=== PATIENT | female | born 1990 | race Caucasian/White ===

== ENCOUNTER 2016-12-11 09:47 | Inpatient (IN) | payer BC, OTHER ==
[2016-12-11] MEDS ORDERED: Ondansetron 4 MG/2 ML SDV IVPUSH PRN ×2 (10:11→10:54)
[2016-12-11] MEDS ORDERED: Nalbuphine 20 MG/1 ML Amp IVPUSH PRN (10:11)
[2016-12-11] MEDS ORDERED: Sodium Chloride 0.9% 10 ML Syringe FLUSH PRN (10:11)
[2016-12-11] MEDS ORDERED: Oxytocin/Lactated Ringers 10 UNIT/1,000 ML BAG IV SCH (10:15)
--- NOTE | 2016-12-11 10:41 | PCM.LDHP ---
L&D History of Present Illness - General Date of Service: 12/11/16 Admit Problem/Dx: Patient Status Order with Admit Dx/Problem Admission Diagnosis: Intrauterine at 39 and 1/7th weeks gestation. 12/11/16 10:43 12/11/16 11:22 - History of Present Illness Introduction:: The patient is a 26-year-old, 2, para 1-0-0-1 white female with an ERIC Of 12/17/2016, who was admitted for elective induction of labor. She is presently 2 cm dilated, 50% effaced, soft, mid position, and -3 station. Course: The patient's last menstrual period was on 03/12/2016, was definite, and using no control at the time of conception. Her LMP was supported by ultrasounds done on 06/04/2016 and 08/11/2016. Her course has been relatively unremarkable. She is open to an epidural for pain control. She had an [place] Depression Screen score of 8 on 08/10/2016. She does have a history of anxiety and depression which has been stable throughout without medication. She received her tdap vaccine on 10/12/2016. Group B strep screen was positive. Genetic testing was declined. She plans on . Her course was unremarkable in that she had a weight gain of approximately 210 to 243 pounds. Her vital signs have been stable throughout , and her fundal height growth was appropriate. Laboratory Testing: Showed blood to be A positive with negative antibody screening. Her hemoglobin was 12.8 at first visit. Platelets were 308,000. She is rubella immune. RPR is nonreactive. Her urine culture had mixed jean carlos suggestive on contamination. Hepatitis B and HIV assays were negative. Chlamydia and gonorrhea were negative. Her second trimester testing showed a hemoglobin of 11.6 and platelets were 308, 000. her 1-hour glucose was 117 - normal. Group B strep screen was positive. Allergies: Sulfa drugs; hives Sun Medications: 1. vitamin 1 tablet daily 2. Tylenol PM extra strength tabs PRN. Past Medical History: Recurrent UTIs Anxiety and depression Chronic bronchitis Left nipple discharge Chronic back pain Past Surgical History: Tonsillectomy 2007 Oral surgery 2006 - Related Data Allergies/Adverse Reactions: Allergies Allergy/AdvReac Type Severity Reaction Status Date / Time Sulfa (Sulfonamide Allergy Hives Verified 12/11/16 10:47 Antibiotics) Social & Family History - Family History Other Family History: Mother: alive; healthy Father: alive; adult onset diabetes mellitus and hypertension 2 Sisters: alive; healthy Maternal Grandmother: alive; hypertension, hypercholesterolemia Maternal Grandfather: alive; prostate cancer Maternal Aunt: ; cancer Paternal Grandmother: ; unknown cause Paternal Grandfather: ; unknown cause. No family history of bleeding or clotting disorders. No anesthesia problems in family. - Living Situation & Occupation Social History Comment: The patient is , is Tylor Navas. They live in [place], [place]. The patient works at [employer]. Denies alcohol, tobacco, and drug use during . She is a former smoker and quit prior to . H&P Review of Systems - Review of Systems: Review Of Systems: See Below Free Text/Narrative: Respiratory: Orthopnea secondary to . Denies shortness of breath and recent upper respiratory infections. Cardiovascular: Denies chest pain, palpitations and history of murmur. Breasts: Changes associated with GI: Constipation throughout . Denies blood in stool, nausea, and vomiting. : Changes associated with . Denies burning with urination and blood in urine. Musculoskeletal: Minimal edema on occasion Neurologic: Occasional headaches. Denies vision change. Physical Exam: General: The patient is a well-developed, well-nourished, pleasant female of state age, in no acute distress. Vital signs: Her blood pressure is 110/64 on last evaluation in clinic on 12/02. Weight was 243 with pregravid weight of 210. Her pre- BMI 31. heart rate was 138. Skin: Warm and dry without lesions Lung: Clear to auscultation bilaterally. Cardiovascular: Regular rate and rhythm without murmurs Breasts: Exam is deferred, having been done at first visit and found to be normal Abdomen: Protuberant with with a fundal height to 38 cm. Baby in a vertex presentation. Cervical exam in clinic on 12/02/2016 showed 2 cm, 80% effaced, very soft, mid position and -3 station. Extremities: NO significant edema. L&D Exam - Exam Exam: See Below - Patient Data Result Diagrams: 12/11/16 10:34 Problem List Initiated/Reviewed/Updated: Yes Orders Last 24hrs: Active Orders 24 hr Category Date Time Status Patient Status [ADT] Routine ADT 12/11/16 10:11 Active Activity as Tolerated [RC] PFP Care 12/11/16 10:11 Active Communication Order [RC] ASDIRECTED Care 12/11/16 10:11 Active Heart Tones [RC] ASDIRECTED Care 12/11/16 10:13 Active Notify Provider [RC] PFP Care 12/11/16 10:11 Active Notify Provider [RC] PRN Care 12/11/16 10:11 Active Peripheral IV Care [RC] . DIRECTED Care 12/11/16 10:13 Active Pump Management, Intrathecal [RC] ASDIRECTED Care 12/11/16 10:17 Active Vital Signs [RC] PER UNIT ROUTINE Care 12/11/16 10:11 Active Regular Diet [DIET] Diet 12/11/16 Lunch Active CBC WITH AUTO DIFF [HEME] Stat Lab 12/11/16 10:11 Ordered Ampicillin 1 gm Med 12/11/16 10:15 Ordered Sodium Chloride 0.9% [Normal Saline] 100 ml IV Q4H Ampicillin 2 gm Med 12/11/16 10:11 Ordered Sodium Chloride 0.9% [Normal Saline] 100 ml IV ONETIME Lactated Ringers [Ringers, Lactated] 1,000 ml Med 12/11/16 10:15 Pending IV ASDIRECTED Lidocaine 1% [Xylocaine 1%] Med 12/11/16 10:11 Once 10 ml INJECT ONETIME ONE Nalbuphine [Nubain] Med 12/11/16 10:11 Ordered 10 mg IVPUSH Q2H PRN Ondansetron [Zofran] Med 12/11/16 10:11 Ordered 4 mg IVPUSH Q4H PRN Oxytocin/Lactated Ringers [Pitocin in LR 10 Units/1,000 Med 12/11/16 10:15 Ordered ML] 10 unit in 1,000 ml IV TITRATE Sodium Chloride 0.9% [Saline Flush] Med 12/11/16 10:11 Ordered 10 ml FLUSH ASDIRECTED PRN Electronic Heart Tones Ext w TOCO [WOMSER] Oth 12/11/16 10:11 Ordered Routine Electronic Heart Tones Internal [WOMSER] Per Unit Oth 12/11/16 10:11 Ordered Routine Peripheral IV Insertion Adult [OM.PC] Routine Oth 12/11/16 10:11 Ordered Resuscitation Status Routine Resus Stat 12/11/16 10:11 Ordered Medication Orders Ampicillin Sodium 2 gm/ Sodium (Chloride) 100 mls @ 200 mls/hr IV ONETIME ONE Stop: 12/11/16 10:40 Ampicillin Sodium 1 gm/ Sodium (Chloride) 100 mls @ 200 mls/hr IV Q4H IGNA[facility] Lactated Ringer's (Ringers, Lactated) 1,000 mls @ 100 mls/hr IV ASDIRECTED [facility] Oxytocin/Lactated Ringer's (Pitocin In Lr 10 Units/1,000 Ml) 10 unit in 1,000 mls @ 12 mls/hr IV TITRATE IGNACIO; 2 MUNITS/MIN PRN Reason: Protocol Lidocaine HCl (Xylocaine 1%) 10 ml INJECT ONETIME ONE Stop: 12/11/16 10:12 Nalbuphine HCl (Nubain) 10 mg IVPUSH Q2H PRN PRN Reason: Pain (moderate 4-6) Ondansetron HCl (Zofran) 4 mg IVPUSH Q4H PRN PRN Reason: Nausea/Vomiting Sodium Chloride (Saline Flush) 10 ml FLUSH ASDIRECTED PRN PRN Reason: Keep Vein Open Assessment/Plan Comment:: Assessment: 1 Term intrauterine at 39 and 1/7th weeks gestational age 2. Group B strep screen positive 3. Patient desires epidural for pain control 4. Patient plans to nurse Plan: 1. Anticipate normal spontaneous vaginal delivery 2. Ampicillin during labor for GBS 3. CBC and Epidural PRN per the patient's desire 4. support nursing decision
[2016-12-11] MEDS ORDERED: fentaNYL 100 MCG/2 ML SDV EPIDUR PRN (10:54)
[2016-12-11] MEDS ORDERED: ePHEDrine 50 MG/ML SDV IVPUSH PRN (10:54)
[2016-12-11] MEDS ORDERED: Bupivacaine/fentaNYL/NS 100 ML Bag EPIDUR SCH (11:00)
[2016-12-11] MEDS ORDERED: Ampicillin 2 GM in Sodium Chloride 0.9% 100 ML IV ONE (11:00)
[2016-12-11] MEDS: Lactated Ringers 1,000 ML IV SCH ×3 (11:11→18:30)
--- NOTE | 2016-12-11 12:19 | PCM.PREANE ---
Preanesthetic Assessment - Anesthesia/Transfusion/Family Hx Anesthesia History: Prior Anesthesia Without Reaction Family History of Anesthesia Reaction: No Transfusion History: No Prior Transfusion(s) Intubation History: Unknown - Review of Systems General: No Symptoms Pulmonary: No Symptoms Cardiovascular: No Symptoms Gastrointestinal: No Symptoms, Constipation Neurological: No Symptoms Other: Reports: Sinus Problem (rhinitis), Depression, Anxiety - Physical Assessment NPO Status Date: 12/11/16 NPO Status Time: 08:00 Pulse: 89 O2 Sat by Pulse Oximetry: 99 Respiratory Rate: 18 Blood Pressure: 128/73 Temperature: 36.7 C Vital Signs: Last Vital Signs Temp 36.7 C 12/11/16 10:44 Pulse 89 12/11/16 10:44 Resp 18 12/11/16 10:44 BP 128/73 12/11/16 10:44 Pulse Ox Height: 1.75 m Weight: 110.54 kg ASA Class: 2 Mental Status: Alert & Oriented x3 Airway Class: Mallampati = 2 Dentition: Reports: Normal Dentition, Caries Thyro-Mental Finger Breadths: 3 Mouth Opening Finger Breadths: 3 ROM/Head Extension: Full Lungs: Clear to Auscultation, Normal Respiratory Effort Cardiovascular: Regular Rate, Regular Rhythm, No Murmurs - Lab Values: Laboratory Last Values WBC 12.23 K/mm3 (3.98-10.04) H 12/11/16 10:34 RBC 4.27 M/mm3 (3.98-5.22) 12/11/16 10:34 Hgb 12.4 gm/L (11.2-15.7) 12/11/16 10:34 Hct 38.1 % (34.1-44.9) 12/11/16 10:34 MCV 89.2 fl (79.4-94.8) 12/11/16 10:34 MCH 29.0 pg (25.6-32.2) 12/11/16 10:34 MCHC 32.5 g/dl (32.2-35.5) 12/11/16 10:34 RDW Std Deviation 48.5 fL (36.4-46.3) H 12/11/16 10:34 Plt Count 225 K/mm3 (182-369) 12/11/16 10:34 MPV 10.6 fl (9.4-12.3) 12/11/16 10:34 Neut % (Auto) 77.7 % (34.0-71.1) H 12/11/16 10:34 Lymph % (Auto) 13.4 % (19.3-51.7) L 12/11/16 10:34 [place] % (Auto) 7.1 % (4.7-12.5) 12/11/16 10:34 Eos % (Auto) 0.7 (0.7-5.8) 12/11/16 10:34 Baso % (Auto) 0.2 % (0.1-1.2) 12/11/16 10:34 Neut # (Auto) 9.51 K/mm3 (1.56-6.13) H 12/11/16 10:34 Lymph # (Auto) 1.64 K/mm3 (1.18-3.74) 12/11/16 10:34 [place] # (Auto) 0.87 K/mm3 (0.24-0.36) H 12/11/16 10:34 Eos # (Auto) 0.08 K/mm3 (0.04-0.36) 12/11/16 10:34 Baso # (Auto) 0.02 K/mm3 (0.01-0.08) 12/11/16 10:34 Manual Slide Review Normal smear 12/11/16 10:34 Above labs reviewed and noted. - Allergies Allergies/Adverse Reactions: Allergies Allergy/AdvReac Type Severity Reaction Status Date / Time Sulfa (Sulfonamide Allergy Hives Verified 12/11/16 10:47 Antibiotics) - Anesthesia Plan Pre-Op Medication Ordered: None - Acknowledgements Anesthesia Type Planned: Epidural Pt an Appropriate Candidate for the Planned Anesthesia: Yes Alternatives and Risks of Anesthesia Discussed w Pt/Guardian: Yes Pt/Guardian Understands and Agrees with Anesthesia Plan: Yes PreAnesthesia Questionnaire Genitourinary History: Reports: UTI, Recurrent [employer] History: Reports: Psychiatric History: Reports: Anxiety, Depression - SUBSTANCE USE Smoking Status *Q: Former Smoker Tobacco Use Within Last Twelve Months: Cigarettes Second Hand Smoke Exposure: No Recreational Drug Use History: No - CURRENT (IN HOUSE) MEDS Current Meds: Current Medications Ephedrine Sulfate (Ephedrine Sulfate) 5 mg IVPUSH ASDIRECTED PRN PRN Reason: Hypotension Fentanyl (Sublimaze) 100 mcg EPIDUR Q3H PRN PRN Reason: Pain Fentanyl/Bupivacaine HCl (Fentanyl/Bupivacaine/Ns 2 Mcg-0.125% 100 Ml) 100 ml EPIDUR ASDIRECTED [facility] Ampicillin Sodium 1 gm/ Sodium (Chloride) 100 mls @ 200 mls/hr IV Q4H [facility] Lactated Ringer's (Ringers, Lactated) 1,000 mls @ 100 mls/hr IV ASDIRECTED [facility] Last Admin: 12/11/16 11:11 Dose: 100 mls/hr Oxytocin/Lactated Ringer's (Pitocin In Lr 10 Units/1,000 Ml) 10 unit in 1,000 mls @ 12 mls/hr IV TITRATE IGNA[facility]; 2 MUNITS/MIN PRN Reason: Protocol Last Titration: 12/11/16 11:49 Dose: 4 munits/min, 24 mls/hr Lidocaine HCl (Xylocaine 1%) 10 ml INJECT ONETIME ONE Stop: 12/11/16 15:01 Nalbuphine HCl (Nubain) 10 mg IVPUSH Q2H PRN PRN Reason: Pain (moderate 4-6) Ondansetron HCl (Zofran) 4 mg IVPUSH Q4H PRN PRN Reason: Nausea/Vomiting Ondansetron HCl (Zofran) 4 mg IVPUSH ONETIME PRN PRN Reason: Nausea/Vomiting Sodium Chloride (Saline Flush) 10 ml FLUSH ASDIRECTED PRN PRN Reason: Keep Vein Open Discontinued Medications Ampicillin Sodium 2 gm/ Sodium (Chloride) 100 mls @ 200 mls/hr IV ONETIME ONE Stop: 12/11/16 11:29 Last Admin: 12/11/16 11:11 Dose: 200 mls/hr
[2016-12-11] MEDS: Ampicillin 1 GM in Sodium Chloride 0.9% 100 ML IV SCH ×2 (14:58→18:53)
[2016-12-11] MEDS ORDERED: Lidocaine 1% 50 ML MDV INJECT ONE (15:00)
--- NOTE | 2016-12-11 21:08 | PCM.SN ---
- Free Text/Narrative Note: Cristino is a 26-year-ol multigravida white female who was admitted on the a.m. of 12/11/2016 for elective induction of labor. Pitocin was initially started and labor progressed without incident. She became completely dilated approximately 2123 hrs. She delivered a viable male infant, Apgars of 8 and 9 in occiput anterior position. Nose and mouth were bulb suctioned. Baby was placed on mom's abdomen. Cord was cut by the father. Cord blood was obtained. The The placenta delivered in a [place] fashion approximately 4 minutes later. Pitocin was given IV to facilitate increase uterine tone and to decrease uterine bleeding. There is a small superficial first-degree laceration of the perineum which is closed in a routine fashion was short running suture of 3-0 Monocryl. Aspirin blood loss was 400 mL. Condition: Good. Patient plans to nurse.
[2016-12-11] MEDS ORDERED: Bupivacaine 0.25% 10 ML SDV ONE (22:22)
[2016-12-11] MEDS ORDERED: Witch Hazel Medicated Pads 100/Jar TOP PRN (22:44)
[2016-12-11] MEDS ORDERED: Benzocaine/Menthol 20%-0.5% Spray 56 GM Canister TOP PRN (22:44)
[2016-12-11] MEDS ORDERED: Docusate Sodium 100 MG Cap PO PRN (22:44)
[2016-12-11] MEDS ORDERED: Lanolin 100% Cream 7 GM Tube TOP PRN (22:44)
[2016-12-11] MEDS ORDERED: Acetaminophen 325 MG Tab PO PRN (22:44)
[2016-12-11] MEDS: Ibuprofen 600 MG Tab PO PRN (23:14)
[2016-12-12] MEDS: Ibuprofen 600 MG Tab PO PRN ×4 (04:10→23:26)
--- NOTE | 2016-12-12 07:40 | PCM.SN ---
- Free Text/Narrative Note: patient is doing well on day 1. She has minimal lochia, was voiding well. Epidural is worn off. She is ambulating without concerns. Vital signs stable, patient is afebrile. Abdomen soft, nontender, uterus at umbilicus, soft. Legs are nontender with only minimal edema. White blood count is 12.23. Hemoglobin is 12.4. Hematocrit is 38.1 and platelets are 255. Assessment/plan: day 1doing well. Probably home tomorrow. Routine cares.
[2016-12-12] MEDS: Prenatal Multivitamin with Calcium/Folic Acid/Iron Tab PO SCH ×2 (16:25→18:47)
[2016-12-13] MEDS: Ibuprofen 600 MG Tab PO PRN ×2 (04:08→09:07)
--- NOTE | 2016-12-13 07:38 | PCM.DCSUM1 ---
[id number] 4d Home, Self-Care 01 Condition: Good - Patient Summary/Data Hospital Course: Cristino is a 26-year-ol multigravida white female who was admitted on the a.m. of 12/11/2016 for elective induction of labor. Pitocin was initially started and labor progressed without incident. She became completely dilated approximately 2123 hrs. She delivered a viable male , Apgars of 8 and 9 in occiput anterior position. Nose and mouth were bulb suctioned. Baby was placed on mom's abdomen. Cord was cut by the father. Cord blood was obtained. The placenta delivered in a [place] fashion approximately 4 minutes later. Pitocin was given IV to facilitate increase uterine tone and to decrease uterine bleeding. There is a small superficial first-degree laceration of the perineum which is closed in a routine fashion was short running suture of 3-0 Monocryl. Aspirin blood loss was 400 mL. PPD2 patient complained of and demonstrated on exam unliateral right leg edema - ultrasound preformed - negative for DVT - Patient Instructions Diet: Usual Diet as Tolerated Activity: No Strenuous Activities Activity, Other: pelvic rest Driving: May Drive Today Showering/Bathing: May Shower Notify Provider of: Fever, Increased Pain, Swelling and Redness, Drainage, Nausea and/or Vomiting - Discharge Plan Patient Handouts: Depression and Baby Blues, Home Care Instructions for Mom Referrals: Yeison Carrasquillo MD [Primary Care Provider] - - Discharge Summary/Plan Comment DC Time >30 min.: Yes (DVT eval) - General Info Date of Service: 12/13/16 Functional Status: Reports: Pain Controlled - Review of Systems General: Reports: No Symptoms HEENT: Reports: No Symptoms Pulmonary: Reports: No Symptoms Cardiovascular: Reports: No Symptoms Gastrointestinal: Reports: No Symptoms Genitourinary: Reports: No Symptoms Musculoskeletal: Reports: Leg Pain (right), Joint Swelling, Other Skin: Reports: No Symptoms Neurological: Reports: No Symptoms Psychiatric: Reports: No Symptoms - Patient Data Vitals - Most Recent: Last Vital Signs Temp 36.6 C 12/13/16 03:52 Pulse 75 12/13/16 03:52 Resp 13 12/13/16 03:52 BP 111/55 L 12/13/16 03:52 Pulse Ox 97 12/13/16 03:52 Weight - Most Recent: 110.54 kg I&O - Last 24 hours: Intake & Output 12/12/16 12/13/16 12/13/16 22:59 06:59 14:59 Intake Total 120 Balance 120 Lab Results - Last 24 hrs: Laboratory Results - last 24 hr 12/12/16 Range/Units 19:45 WBC 14.02 H (3.98-10.04) K/mm3 RBC 3.82 L (3.98-5.22) M/mm3 Hgb 11.1 L (11.2-15.7) gm/L Hct 34.8 (34.1-44.9) % MCV 91.1 (79.4-94.8) fl MCH 29.1 (25.6-32.2) pg MCHC 31.9 L (32.2-35.5) g/dl RDW Std Deviation 49.3 H (36.4-46.3) fL Plt Count 207 (182-369) K/mm3 MPV 10.5 (9.4-12.3) fl Med Orders - Current: Current Medications Acetaminophen (Tylenol) 650 mg PO Q4H PRN PRN Reason: mild pain or fever Last Admin: 12/12/16 21:50 Dose: 650 mg Benzocaine/Menthol (Dermoplast Pain Relief [place]) 0 gm TOP ASDIRECTED PRN PRN Reason: Perineal Comfort Measure Last Admin: 12/12/16 04:02 Dose: 1 canister Docusate Sodium (Colace) 100 mg PO BID PRN PRN Reason: Constipation Emollient Ointment (Lansinoh Hpa) 0 gm TOP ASDIRECTED PRN PRN Reason: Sore Nipples Last Admin: 12/12/16 04:02 Dose: 1 tube Ibuprofen (Motrin) 600 mg PO Q4H PRN PRN Reason: Mild pain or fever Last Admin: 12/13/16 04:08 Dose: 600 mg Prenat Multivit/[place]/Iron/Folic Ac ( Plus Iron) 1 each PO DAILY IGNACIO Last Admin: 12/12/16 18:47 Dose: 1 each Witch Rosina (Tucks) 1 pad TOP ASDIRECTED PRN PRN Reason: Hemorrhoid pain Last Admin: 12/12/16 04:02 Dose: 1 canister Discontinued Medications Ephedrine Sulfate (Ephedrine Sulfate) 5 mg IVPUSH ASDIRECTED PRN PRN Reason: Hypotension Fentanyl (Sublimaze) 100 mcg EPIDUR Q3H PRN PRN Reason: Pain Last Admin: 12/11/16 17:01 Dose: 100 mcg Fentanyl/Bupivacaine HCl (Fentanyl/Bupivacaine/Ns 2 Mcg-0.125% 100 Ml) 100 ml EPIDUR ASDIRECTED IGNACIO Last Admin: 12/11/16 17:01 Dose: 100 ml Ampicillin Sodium 2 gm/ Sodium (Chloride) 100 mls @ 200 mls/hr IV ONETIME ONE Stop: 12/11/16 11:29 Last Admin: 12/11/16 11:11 Dose: 200 mls/hr Ampicillin Sodium 1 gm/ Sodium (Chloride) 100 mls @ 200 mls/hr IV Q4H [facility] Last Admin: 12/11/16 18:53 Dose: 200 mls/hr Lactated Ringer's (Ringers, Lactated) 1,000 mls @ 100 mls/hr IV ASDIRECTED [facility] Last Admin: 12/11/16 18:30 Dose: 100 mls/hr Oxytocin/Lactated Ringer's (Pitocin In Lr 10 Units/1,000 Ml) 10 unit in 1,000 mls @ 12 mls/hr IV TITRATE IGNACIO; 2 MUNITS/MIN PRN Reason: Protocol Last Titration: 12/11/16 20:20 Dose: 0 munits/min, 0 mls/hr Lidocaine HCl (Xylocaine 1%) 10 ml INJECT ONETIME ONE Stop: 12/11/16 15:01 Last Admin: 12/12/16 16:26 Dose: Not Given Nalbuphine HCl (Nubain) 10 mg IVPUSH Q2H PRN PRN Reason: Pain (moderate 4-6) Ondansetron HCl (Zofran) 4 mg IVPUSH Q4H PRN PRN Reason: Nausea/Vomiting Ondansetron HCl (Zofran) 4 mg IVPUSH ONETIME PRN PRN Reason: Nausea/Vomiting Sodium Chloride (Saline Flush) 10 ml FLUSH ASDIRECTED PRN PRN Reason: Keep Vein Open - Exam General: Reports: Alert, Oriented HEENT: Reports: Pupils Equal, Pupils Reactive, EOMI, Mucous Membr. Moist/[place] Neck: Reports: Supple Lungs: Reports: Clear to Auscultation, Normal Respiratory Effort Cardiovascular: Reports: Regular Rate, Regular Rhythm GI/Abdominal Exam: Normal Bowel Sounds, Soft, No Distention, Other ([id number]) (Female) Exam: Normal External Exam, Normal Speculum Exam, Normal Bimanual Exam Back Exam: Reports: Normal Inspection Extremities: Normal Inspection, Normal Range of Motion, Normal Capillary Refill , Haritha's Sign (right), Leg Pain (right), Other (right 2+ edema left negative). No: Increased Warmth, Mottled, Pallor Skin: Reports: Warm, Dry, Intact Wound/Incisions: Reports: Healing Well Neurological: Reports: No New Focal Deficit Psy/Mental Status: Reports: Alert, Normal Affect, Normal Mood *Q Meaningful Use (DIS) - VTE *Q VTE Criteria *Q: - Stroke *Q Stroke Criteria *Q: - AMI *Q AMI Criteria *Q:
[2016-12-13] MEDS: Prenatal Multivitamin with Calcium/Folic Acid/Iron Tab PO SCH (09:07)
--- NOTE | 2016-12-13 09:25 | US ---
Right lower extremity deep venous ultrasound: Duplex and color flow imaging was obtained of the right common femoral, proximal greater saphenous, superficial femoral, popliteal, posterior tibial and peroneal veins. Left common femoral vein was also evaluated. Findings: Calf veins not optimally seen. Other veins show normal phasic flow, augmentation and compression. Impression: 1. Calf veins not optimally seen. No secondary evidence to indicate thrombosis. Other veins of the right lower extremity are patent. Left common femoral vein is also patent. Diagnostic code #2
[2016-12-13 12:50] VITALS: BP 124/71
== END 2016-12-13 12:50 | disposition home or self-care (01) | DRG 560 ==
LOC: JD.OB 09:47 → OBSVTOIN 21:23
PROVIDERS: ADMIT Obstetrics & Gynecology; ATTEND Obstetrics & Gynecology
PROC: 10E0XZZ Delivery of Products of Conception, External Approach (ICD-10-PCS; principal; 2016-12-11)
PROC: 3E033VJ Introduction of Other Hormone into Peripheral Vein, Percutaneous Approach (ICD-10-PCS; 2016-12-11)
PROC: 10907ZC Drainage of Amniotic Fluid, Therapeutic from Products of Conception, Via Natural or Artificial Opening (ICD-10-PCS; 2016-12-11)
PROC: 0HQ9XZZ Repair Perineum Skin, External Approach (ICD-10-PCS; 2016-12-11)
PROC: 00HU33Z Insertion of Infusion Device into Spinal Canal, Percutaneous Approach (ICD-10-PCS; 2016-12-11)
PROC: 3E0R3CZ (ICD-10-PCS; 2016-12-11)
DX: O99.824 Streptococcus B carrier state complicating childbirth (principal); Z3A.39 39 weeks gestation of pregnancy; Z37.0 Single live birth; Z88.2 Allergy status to sulfonamides; Z91.09 Other allergy status, other than to drugs and biological substances; Z87.891 Personal history of nicotine dependence; O70.0 First degree perineal laceration during delivery; O69.81X0 Labor and delivery complicated by cord around neck, without compression, not applicable or unspecified
CPT/HCPCS: 36415; 85025; 85027; 93971-26-RT; 93971-RT; A9270-GY; J0290; J2590; J3010; J7030; J7120

== ENCOUNTER 2022-07-19 05:45 | Inpatient (IN) | payer BC ==
[2022-07-19] MEDS ORDERED: Sodium Chloride 0.9% 10 ML Syringe FLUSH PRN (19:07)
[2022-07-19] MEDS ORDERED: Nalbuphine 10 MG/0.5 ML Syringe IVPUSH PRN (19:07)
[2022-07-19] MEDS ORDERED: Ondansetron 4 MG/2 ML SDV IVPUSH PRN (19:07)
[2022-07-19] MEDS ORDERED: Ampicillin 2 GM in Sodium Chloride 0.9% 100 ML IV ONE (20:03)
[2022-07-19] MEDS: Lactated Ringers 1,000 ML IV SCH (20:24)
[2022-07-19] MEDS ORDERED: Sodium Chloride 0.9% 10 ML Syringe FLUSH SCH (21:00)
[2022-07-19] MEDS ORDERED: fentaNYL 100 MCG/2 ML SDV EPIDUR PRN (23:54)
[2022-07-19] MEDS ORDERED: Bupivacaine/fentaNYL/NS 100 ML Bag EPIDUR PRN (23:54)
[2022-07-19] MEDS ORDERED: ePHEDrine 50 MG/ML SDV IVPUSH PRN (23:54)
[2022-07-19] MEDS ORDERED: diphenhydrAMINE 50 MG/ML SDV IVPUSH PRN (23:54)
[2022-07-20] MEDS ORDERED: Ropivacaine 0.2% PF 2 MG/ML 20 ML SDV ONE (02:00)
[2022-07-20] MEDS ORDERED: Oxytocin/Lactated Ringers 10 UNIT/1,000 ML BAG IV SCH ×2 (03:15→05:10)
[2022-07-20] MEDS: Ampicillin 1 GM in Sodium Chloride 0.9% 100 ML IV SCH ×3 (03:46)
[2022-07-20] MEDS: Lactated Ringers 1,000 ML IV SCH (05:15)
[2022-07-20] MEDS ORDERED: Sertraline 50 MG Tab PO SCH (09:00)
[2022-07-20] MEDS ORDERED: Prenatal Multivitamin with Calcium/Folic Acid/Iron Tab PO SCH (09:05)
[2022-07-20] MEDS ORDERED: Acetaminophen 325 MG Tab PO PRN (09:05)
[2022-07-20] MEDS ORDERED: Benzocaine/Menthol 20%-0.5% Spray 78 GM Cannister TOP PRN (09:05)
[2022-07-20] MEDS ORDERED: Witch Hazel Medicated Pads 40/Jar TOP PRN (09:05)
[2022-07-20] MEDS ORDERED: Docusate Sodium 100 MG Cap PO PRN (09:05)
[2022-07-20] MEDS: Ibuprofen 600 MG Tab PO PRN (16:57)
[2022-07-21] MEDS: Ibuprofen 600 MG Tab PO PRN (06:53)
[2022-07-21 09:59] VITALS: BP 124/80; PULSE 87
== END 2022-07-21 10:08 | disposition home or self-care (01) | DRG 560 ==
LOC: JD.OB 05:45 → OBSVTOIN 07-20 05:45 → JD.OB 07-20 05:46
PROVIDERS: ADMIT Obstetrics & Gynecology; ATTEND Obstetrics & Gynecology
PROC: 10E0XZZ Delivery of Products of Conception, External Approach (ICD-10-PCS; principal; 2022-07-20)
PROC: 10907ZC Drainage of Amniotic Fluid, Therapeutic from Products of Conception, Via Natural or Artificial Opening (ICD-10-PCS; 2022-07-20)
PROC: 10H07YZ Insertion of Other Device into Products of Conception, Via Natural or Artificial Opening (ICD-10-PCS; 2022-07-20)
PROC: 0KQM0ZZ Repair Perineum Muscle, Open Approach (ICD-10-PCS; 2022-07-20)
PROC: 3E0R3BZ Introduction of Anesthetic Agent into Spinal Canal, Percutaneous Approach (ICD-10-PCS; 2022-07-20)
PROC: 3E033VJ Introduction of Other Hormone into Peripheral Vein, Percutaneous Approach (ICD-10-PCS; 2022-07-20)
PROC: 00HU33Z Insertion of Infusion Device into Spinal Canal, Percutaneous Approach (ICD-10-PCS; 2022-07-20)
DX: O24.425 Gestational diabetes mellitus in childbirth, controlled by oral hypoglycemic drugs (principal); Z3A.38 38 weeks gestation of pregnancy; Z37.0 Single live birth; O99.824 Streptococcus B carrier state complicating childbirth; E66.09 Other obesity due to excess calories; O98.52 Other viral diseases complicating childbirth; B00.1 Herpesviral vesicular dermatitis; O70.1 Second degree perineal laceration during delivery; O99.344 Other mental disorders complicating childbirth; F41.9 Anxiety disorder, unspecified; F32.A Depression, unspecified; O99.214 Obesity complicating childbirth; O69.81X0 Labor and delivery complicated by cord around neck, without compression, not applicable or unspecified; Z88.2 Allergy status to sulfonamides
CPT/HCPCS: 01967; 36415; 51702; 59025; 59409; 82947; 85025; 86592; A9270-GY; J0290; J2590; J2795; J3490; J7120

== ENCOUNTER 2023-03-02 07:44 | Day surgery (SDC) | payer BC ==
[~2023-03-02 07:44] MED LIST: Lactated Ringers 1,000 ML IV SCH; Sodium Chloride 0.9% 10 ML Syringe FLUSH PRN; Sodium Chloride 0.9% 10 ML Syringe FLUSH SCH
[2023-03-02] MEDS ORDERED: Bupivacaine 0.5% 30 ML SDV ONE (07:46)
[2023-03-02] MEDS ORDERED: Bupivacaine 0.25% 10 ML SDV ONE (07:47)
[2023-03-02] MEDS ORDERED: EPINEPHrine 1 MG/ML SDV ONE (07:47)
[2023-03-02 08:18] LABS: BASOPHILS ABSOLUTE AUTO 0.1 K/mm3 (0.0-0.2); BASOPHILS PERCENT AUTO 0.7 % (0.0-1.0); EOSINOPHILS ABSOLUTE AUTO 0.2 K/mm3 (0.0-0.4); EOSINOPHILS PERCENT AUTO 1.8 % (0.0-6.0); IMMATURE GRAN ABSOLUTE AUTO 0.03 K/mm3 (0.00-0.05); IMMATURE GRAN PERCENT AUTO 0.4 % (0.0-0.4); LYMPHOCYTES ABSOLUTE AUTO 2.5 K/mm3 (1.0-4.8); LYMPHOCYTES PERCENT AUTO 30.9 % (24.0-44.0); MEAN CORPUSCULAR HEMOGLOBIN 28.6 pg (28.0-32.0); MEAN CORPUSCULAR HGB CONC 32.5 g/dl (32.0-36.0); MEAN CORPUSCULAR VOLUME 88.1 fl (83.0-99.0); MEAN PLATELET VOLUME 9.9 fl (9.4-12.3); MONOCYTES ABSOLUTE AUTO 0.6 K/mm3 (0.0-0.8); MONOCYTES PERCENT AUTO 6.7 % (0.0-8.0); NEUTROPHILS ABSOLUTE AUTO 4.9 K/mm3 (1.8-7.7); NEUTROPHILS PERCENT AUTO 59.5 % (41.0-71.0); PLATELET COUNT,PLT 265 K/mm3 (150-400); RED BLOOD CELL COUNT 4.54 M/mm3 (4.10-5.30); WHITE BLOOD CELL COUNT,WBC 8.23 K/mm3 (3.9-11.3)
[2023-03-02 08:36] LABS: ANION GAP 13.7 (5-15); BUN/CREATININE RATIO 11.4 (14-18); CREATININE 0.7 mg/dL (0.55-1.02); EST CRCL DRUG DOSING (CG) 121.69 mL/min; POTASSIUM,K 3.7 mEq/L (3.5-5.1)
[2023-03-02] MEDS ORDERED: fentaNYL 100 MCG/2 ML SDV IVPUSH PRN (08:54)
[2023-03-02] MEDS ORDERED: Ondansetron 4 MG/2 ML SDV IVPUSH PRN (08:54)
[2023-03-02] MEDS ORDERED: HYDROmorphone 0.5 MG/0.5 ML Syringe IVPUSH PRN (08:54)
[2023-03-02] MEDS ORDERED: ceFAZolin 2 GM Vial ONE (09:00)
[2023-03-02] MEDS ORDERED: fentaNYL 100 MCG/2 ML SDV ONE (09:04)
[2023-03-02] MEDS ORDERED: Rocuronium 50 MG/5 ML Vial ONE ×2 (09:04→09:30)
[2023-03-02] MEDS ORDERED: Propofol 200 MG/20 ML SDV ONE (09:04)
[2023-03-02] MEDS ORDERED: Lidocaine 2% 5 ML SDV ONE (09:04)
[2023-03-02] MEDS ORDERED: Midazolam 1 MG/ML 2 ML SDV ONE (09:04)
[2023-03-02] MEDS ORDERED: Ondansetron 4 MG/2 ML SDV ONE (09:20)
[2023-03-02] MEDS ORDERED: Dexamethasone 4 MG/ML 5 ML MDV ONE (09:20)
[2023-03-02] MEDS ORDERED: Sugammadex Sodium 200 MG/2 ML VIAL ONE (10:15)
[2023-03-02] MEDS ORDERED: Lactated Ringers 1,000 ML ONE (10:25)
[2023-03-02] MEDS ORDERED: Sodium Chloride 0.9% 1,000 ML ONE (10:26)
[2023-03-02] MEDS ORDERED: Labetalol 100 MG/20 ML MDV ONE (10:31)
[2023-03-02] MEDS ORDERED: Acetaminophen/oxyCODONE 325-5 MG Tab PO SCH (12:32)
[2023-03-02 14:23] VITALS: BP 123/71; PULSE 77
== END 2023-03-02 14:25 | disposition home or self-care (01) ==
LOC: JD.SDS 07:44
PROVIDERS: ATTEND Obstetrics & Gynecology
DX: N72 Inflammatory disease of cervix uteri (principal); N83.8 Other noninflammatory disorders of ovary, fallopian tube and broad ligament; F41.9 Anxiety disorder, unspecified; Z88.2 Allergy status to sulfonamides; Z79.899 Other long term (current) drug therapy
CPT/HCPCS: 36415; 58552; 80048; 85025; 86850; 86900; 86901; A9270; J0171; J0690; J1100; J1170; J2250; J2405; J2704; J3010; J3490; J7030; J7120